=== PATIENT | male | born 1985 | race Hispanic/Latino ===

== ENCOUNTER 2021-11-16 21:20 | Emergency (ER) | payer BC, OTHER, SELFPAY ==
[2021-11-16] MEDS ORDERED: lisinopriL 20 MG TAB ONE (22:14)
[2021-11-16 22:25] LABS: Absolute Lymphocytes (CBC) 2.2 K/uL (0.7-4.9); Lymphocytes % 21.1 % (15.3-44.8); MCV 83.9 fL (80-100); MPV 7.7 fL (7.6-11.3); RBC Red Blood Cell Count 5.37 M/uL (4.33-5.43)
[2021-11-16 22:38] LABS: Potassium 3.4 mmol/L (3.5-5.1)
[2021-11-16] MEDS ORDERED: LABETALOL 20 MG/4ML SYRINGE IV ONE (23:33)
--- NOTE | 2021-11-17 00:50 | EDPHYS ---
Physician Documentation [facility] Name: Kashmir Gore Age: 36 yrs Sex: Male : 1985 Arrival Date: 11/16/2021 Time: 21:23 Bed 18 Private MD: ED Physician Geri Arredondo HPI: 11/16 21:43 This 36 yrs old Male presents to ER via Ambulatory with complaints of High sd2 Blood Pressure, Headache. 21:43 36-year-old male with a history of hypertension presents with chief complaint of high sd2 blood pressure and headache. He reports he has had an ongoing posterior headache since July when he stopped taking his blood pressure medication. He states it is low in intensity but enough for him to notice it. He denies any blurred vision, chest pain or shortness of breath. He reports he stopped taking his medication because he has not been to see his doctor for follow-up and does not like going to the doctor. He also reports worsening reflux and has been taking Nexium at home for it with out relief. He reports he has had nausea and vomiting with eating and drinking at home but currently has no reflux or pain.. Historical: - Allergies: 21:32 No Known Allergies; hb - PMHx: 21:32 Hypertensive disorder; hb - PSHx: 21:32 Arm - Right; hb - Immunization history:: Adult Immunizations up to date. - Social history:: Smoking status: Patient reports the use of cigarette tobacco products, smokes one-half pack cigarettes per day. ROS: 21:43 Constitutional: Negative for chills, and weight loss, Eyes: Negative for injury, pain, sd2 redness, and discharge, Cardiovascular: Negative for chest pain, palpitations, and edema, Respiratory: Negative for shortness of breath, cough, wheezing. Abdomen/GI: Positive for reflux, nausea and vomiting. Negative for abdominal pain and diarrhea. MS/Extremity: Negative for injury and deformity, Skin: Negative for injury, rash, and discoloration, Neuro: Positive for headache, Negative for numbness and tingling. Exam: 21:43 Constitutional: This is a well developed, well nourished patient who is awake, alert, sd2 and in no acute distress. Head/Face: Normocephalic, atraumatic. Eyes: EOMI, normal conjunctiva bilaterally Chest/axilla: Normal chest wall appearance and motion. Nontender with no deformity. Cardiovascular: Regular rate and rhythm with a normal S1 and S2. No gallops, murmurs, or rubs. 2+ distal pulses. Respiratory: Lungs have equal breath sounds bilaterally, clear to auscultation and percussion. No rales, rhonchi or wheezes noted. No increased work of breathing, no retractions or nasal flaring. Abdomen/GI: Soft, non-tender, with normal bowel sounds. No guarding or rebound. No evidence of tenderness throughout. Skin: Warm, dry with normal turgor. Normal color with no rashes, no lesions, and no evidence of cellulitis. MS/ Extremity: Pulses equal, no cyanosis. Neurovascular intact. Full, normal range of motion. Ambulatory without difficulty. Neuro: Awake and alert, GCS 15, oriented to person, place, time, and situation. Cranial nerves II-XII grossly intact. Motor strength 5/5 in all extremities. Sensory grossly intact. Cerebellar exam normal. Normal gait. Psych: Awake, alert, with orientation to person, place and time. Behavior, mood, and affect are within normal limits. Vital Signs: 21:29 BP 184 / 125; Pulse 101; Resp 18; Temp 98.8(TE); Pulse Ox 100% on R/A; Weight 86.18 kg; hb Height 5 ft. 2 in. (157.48 cm); Pain 6/10; 21:55 BP 172 / 113; Pulse 103; Resp 18 S; Pulse Ox 100% on R/A; Pain 6/10; ha1 23:00 BP 173 / 122; Pulse 101; Resp 20 S; Pulse Ox 99% on R/A; ha1 23:45 BP 163 / 109; Pulse 88; Resp 17 S; Pulse Ox 98% on R/A; ha1 11/17 00:28 BP 170 / 111; Pulse 84; Resp 18 S; Pulse Ox 99% on R/A; ha1 01:03 BP 159 / 111; Pulse 74; Resp 18 S; Pulse Ox 99% on R/A; Pain 0/10; ha1 11/16 21:29 Body Mass Index 34.75 (86.18 kg, 157.48 cm) hb [facility]: 11/16 21:36 Patient medically screened. sd2 21:46 Differential diagnosis: Differential diagnosis includes but is not limited to: Tension sd2 headache, migraine headache, intracranial hemorrhage, dehydration, electrolyte abnormality, musculoskeletal, meningitis, HTN among others. Data reviewed: vital signs, nurses notes. 11/17 00:47 Data reviewed: lab test result(s). Counseling: I had a detailed discussion with the sd2 patient and/or guardian regarding: the historical points, exam findings, and any diagnostic results supporting the discharge/admit diagnosis, lab results. Counseling: I had a detailed discussion with the patient and/or guardian regarding: the presence of at least one elevated blood pressure reading (>120/80) during this emergency department visit. Medical screen evaluation completed. EMTALA emergency medical condition absent. Special discussion: I have referred the patient to see his PCP for further evaluation of high blood pressure. ED course: Labs reviewed. No signs of end organ damage. BP improving. Pt to be restarted on his lisinopril and follow up with his PCP for further refills. Pt verbalizes understanding of discharge plan and strict return precautions. Will also start on regimen for patient's GERD and recommended follow up and dietary modifications regarding this. . 11/16 21:43 Order name: CBC with Diff; Complete Time: 22:44 sd2 11/16 21:43 Order name: BMP; Complete Time: 22:44 sd2 Administered Medications: 11/16 22:18 Drug: Lisinopril 20 mg Route: PO; ha1 23:10 Follow up: Response: No adverse reaction; Blood pressure is unchanged ha1 23:27 Drug: Labetalol 10 mg Route: IV; Rate: bolus; Site: left antecubital; ha1 11/17 00:10 Follow up: Response: No adverse reaction; Blood pressure is lowered; IV Status: ha1 Completed infusion; IV Intake: 50ml Disposition Summary: 11/17/21 00:49 Discharge Ordered Location: Home sd2 Problem: an acute exacerbation sd2 Symptoms: have improved sd2 Condition: Stable sd2 Diagnosis - Essential (primary) hypertension sd2 - Medication non-compliance sd2 Followup: sd2 - With: Private Physician - When: 2 - 3 days - Reason: Recheck today's complaints, Continuance of care, Re-evaluation by your physician Discharge Instructions: - Discharge Summary Sheet sd2 - Food Choices for Gastroesophageal Reflux Disease, Adult sd2 - Gastroesophageal Reflux Disease, Adult sd2 - Hypertension, Adult sd2 - Managing Your Hypertension sd2 Forms: - Medication Reconciliation Form sd2 - Thank You Letter sd2 - Antibiotic Education sd2 - Prescription Opioid Use sd2 Prescriptions: - Carafate 1 gram Oral Tablet - take 1 tablet by ORAL route 4 times per day take on an empty stomach, beginning sd2 on waking and last dose at bedtime; 100 tablet; Refills: 0, Product Selection Permitted - Pepcid 20 mg Oral Tablet - take 1 tablet by ORAL route every 12 hours for 14 days; 28 tablet; Refills: 0, sd2 Product Selection Permitted - Lisinopril 20 mg Oral Tablet - take 1 tablet by ORAL route once daily; 30 tablet; Refills: 0, Product sd2 Selection Permitted Signatures: Dispatcher [employer] Hailey Moya RN RN Geri Arredondo MD MD sd2 Nicol Dougherty RN RN ha1 Corrections: (The following items were deleted from the chart) 11/16 21:32 21:32 PSHx: None; [facility]
--- NOTE | 2021-11-17 00:50 | ER ---
Nurse's Notes [facility] Name: Kashmir Gore Age: 36 yrs Sex: Male : 1985 Arrival Date: 11/16/2021 Time: 21:23 Bed 18 Private MD: Diagnosis: Essential (primary) hypertension;Medication non-compliance Presentation: 11/16 21:29 Chief complaint: Fever yesterday, headache and nausea today. Has not taken Lisinopril hb since July. Coronavirus screen: Client presents with at least one sign or symptom that may indicate coronavirus-19. Standard/surgical mask placed on the client. Provider contacted for isolation considerations. At this time, the client does not indicate any symptoms associated with coronavirus-19. Ebola Screen: No symptoms or risks identified at this time. Initial Sepsis Screen: Does the patient meet any 2 criteria? No. Patient's initial sepsis screen is negative. Does the patient have a suspected source of infection? No. Patient's initial sepsis screen is negative. Risk Assessment: Do you want to hurt yourself or someone else? Patient reports no desire to harm self or others. Onset of symptoms was November 15, 2021. 21:29 Method Of Arrival: Ambulatory hb 21:29 Acuity: CAROLE 3 hb Triage Assessment: 11/17 00:49 Headache History: The patient has had previous headaches and this one is similar to ha1 previous episodes. General: Appears uncomfortable. Pain: Complains of pain in head Also complains of no other associated symptoms. Historical: - Allergies: 11/16 21:32 No Known Allergies; hb - PMHx: 21:32 Hypertensive disorder; hb - PSHx: 21:32 Arm - Right; hb - Immunization history:: Adult Immunizations up to date. - Social history:: Smoking status: Patient reports the use of cigarette tobacco products, smokes one-half pack cigarettes per day. Screenin:29 Abuse screen: Denies threats or abuse. Denies injuries from another. Nutritional ha1 screening: No deficits noted. Tuberculosis screening: No symptoms or risk factors identified. Fall Risk None identified. Assessment: 21:52 General: Appears comfortable, Behavior is calm, cooperative. Pain: Complains of pain in ha1 head. Pain: Pain does not radiate. Pain currently is 6 out of 10 on a pain scale. Quality of pain is described as pressure, Pain began Is intermittent, Alleviated by medications. Neuro: Level of Consciousness is awake, alert, Oriented to person, place, time, situation, Speech is normal, Reports headache since 3month pt. reports that headache is due to him not taking his blood pressure medication. Cardiovascular: Patient's skin is warm and dry. Respiratory: Airway is patent Trachea midline Respiratory effort is even, unlabored, Respiratory pattern is regular, symmetrical. GI: Abdomen is non-distended, obese. : No signs and/or symptoms were reported regarding the genitourinary system. Derm: Skin is healthy with good turgor, Skin is pink, warm \T\ dry. 23:00 Reassessment: Patient and/or family updated on plan of care and expected duration. Pain ha1 level reassessed. Patient is alert, oriented x 3, equal unlabored respirations, skin warm/dry/pink. BP not lowered with medication. notified care provider. 11/17 00:00 Reassessment: Patient and/or family updated on plan of care and expected duration. Pain ha1 level reassessed. Patient is alert, oriented x 3, equal unlabored respirations, skin warm/dry/pink. 01:02 Reassessment: Patient and/or family updated on plan of care and expected duration. Pain ha1 level reassessed. Patient is alert, oriented x 3, equal unlabored respirations, skin warm/dry/pink. getting discharged. Vital Signs: 11/16 21:29 BP 184 / 125; Pulse 101; Resp 18; Temp 98.8(TE); Pulse Ox 100% on R/A; Weight 86.18 kg; hb Height 5 ft. 2 in. (157.48 cm); Pain 6/10; 21:55 BP 172 / 113; Pulse 103; Resp 18 S; Pulse Ox 100% on R/A; Pain 6/10; ha1 23:00 BP 173 / 122; Pulse 101; Resp 20 S; Pulse Ox 99% on R/A; ha1 23:45 BP 163 / 109; Pulse 88; Resp 17 S; Pulse Ox 98% on R/A; ha1 11/17 00:28 BP 170 / 111; Pulse 84; Resp 18 S; Pulse Ox 99% on R/A; ha1 01:03 BP 159 / 111; Pulse 74; Resp 18 S; Pulse Ox 99% on R/A; Pain 0/10; ha1 11/16 21:29 Body Mass Index 34.75 (86.18 kg, 157.48 cm) hb ED Course: 11/16 21:23 Patient arrived in ED. ja2 21:32 Triage completed. hb 21:32 Arm band placed on. hb 21:35 Geri Arredondo MD is Attending Physician. sd2 21:41 Nicol Dougherty, RN is Primary Nurse. ha1 22:15 Inserted saline lock: 20 gauge in left antecubital area, using aseptic technique. Blood ha1 collected. 22:29 Patient has correct armband on for positive identification. Bed in low position. Call ha1 light in reach. Side rails up X 1. 22:30 BMP Sent. ha1 11/17 01:05 No provider procedures requiring assistance completed. IV discontinued, intact, ha1 bleeding controlled, No redness/swelling at site. Pressure dressing applied. Administered Medications: 11/16 22:18 Drug: Lisinopril 20 mg Route: PO; ha1 23:10 Follow up: Response: No adverse reaction; Blood pressure is unchanged ha1 23:27 Drug: Labetalol 10 mg Route: IV; Rate: bolus; Site: left antecubital; ha1 11/17 00:10 Follow up: Response: No adverse reaction; Blood pressure is lowered; IV Status: ha1 Completed infusion; IV Intake: 50ml Medication: 01:06 VIS not applicable for this client. ha1 Intake: 00:10 IV: 50ml; Total: 50ml. ha1 Outcome: 00:49 Discharge ordered by . sd2 01:06 Discharged to home ambulatory, with family. ha1 01:06 Condition: stable 01:06 Discharge instructions given to patient, family, Instructed on discharge instructions, follow up and referral plans. medication usage, Demonstrated understanding of instructions, follow-up care, medications, Prescriptions given X 3. 01:06 Patient left the ED. ha1 Signatures: Hailey Anderson RN RN Kesha Gresham Stephanie, MD MD sd2 Ayala, Heidy, GABO RN ha1 Corrections: (The following items were deleted from the chart) 11/16 20: 21:32 PSHx: None; hb hb 23:30 23:00 Reassessment: Patient and/or family updated on plan of care and expected ha1 duration. Pain level reassessed. Patient is alert, oriented x 3, equal unlabored respirations, skin warm/dry/pink. ha1
[2021-11-18 11:57] VITALS: TEMP 98.8
[2021-11-18 12:12] VITALS: O2SAT 99
[2021-11-18 12:15] VITALS: BP 159/111
== END 2021-11-17 01:06 | disposition home or self-care (01) ==
LOC: ER 21:20
DX: I10 Essential (primary) hypertension (principal); Z91.14 Patient's other noncompliance with medication regimen; F17.210 Nicotine dependence, cigarettes, uncomplicated
CPT/HCPCS: 36415; 80048; 85025; 96365; 99284